=== PATIENT | male | born 1970 | race Caucasian/White ===

== ENCOUNTER → 2022-05-15 | Outpatient (CLI) | payer BC ==
--- NOTE | 2022-05-16 07:19 | US ---
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 Patient has had lump on his neck for as long as he can remember 15+years. At patients large palpable neck mass is a solid area with cystic areas on each side. Solid area measu res 2.7 x 1.8 x 1.8cm, cystic area to the right measures 1.7 x 2.1 x 3.2cm, cystic area to the left m easures 3.3 x 1.5 x 2.3cm IMPRESSION: Complex mass for which further evaluation with contrast-enhanced CT is advised.
== END | disposition home or self-care (01) ==
LOC: RADUSWWP 16:27
PROVIDERS: ATTEND Family Medicine
DX: Q89.2 Congenital malformations of other endocrine glands (principal)
CPT/HCPCS: 76536

== ENCOUNTER → 2022-05-21 | Outpatient (CLI) | payer BC ==
[2022-05-21 13:16] LABS: African American GFR (CKD) >90 (>60 ml/min/1.73 sqM); Blood Urea Nitrogen 17 mg/dL (9-20); Non-African American GFR(CKD) >90 (>60 ml/min/1.73 sqM)
--- NOTE | 2022-05-21 21:53 | CT ---
EXAMINATION TYPE: CT soft tissue neck w con DATE OF EXAM: 05/21/2022 HISTORY: Abnormal ultrasound. Chronic lump in neck for over 15 years per patient. COMPARISON: Neck ultrasound [address] DLP: 780.3 mGycm. Automated Exposure Control for Dose Reduction was Utilized. TECHNIQUE: CT scan of the neck is performed with IV Contrast, patient injected with 70 mL of Isovue 300, axial images are obtained, coronal and sagittal reformatted images are reviewed. FINDINGS: Airway: Anterior to the airway and superior to the thyroid gland at level of the false focal cords or cricoid cartilage there is thin walled fluid collection or cystic lesion measuring 3.6 x 1.6 cm-imag e 62 measuring approximately 4.1 cm craniocaudal dimension coronal image 25 extending inferiorly to t he left of midline and superiorly from the inferior posterior margin of the hyoid bone. It is well-de fined with curvilinear shape noted on sagittal images. Parotid/submandibular glands: No gross abnormality seen. Carotid/Vascular Structures: Coronary artery calcifications somewhat prominent and visualized portion of the LAD. Correlate for additional cardiac risk factors advised. [id number] peripheral plaque left greater than right carotid bulb extends into proximal interna l carotid artery without significant stenosis. Vertebral arteries are patent to basilar junction. Lef t vertebral artery is dominant. Osseous Structures: No significant abnormality. Other: No suspicious adenopathy. IMPRESSION: There is 4.1 cm thin-walled cyst or cystic lesion anterior supraglottic level from the hy oid bone to the level of the vocal cords having left inferior extension. Finding consistent with thyr oglossal duct cyst based on appearance and patient history.
== END | disposition home or self-care (01) ==
LOC: RADCTMAIN 12:30
PROVIDERS: ATTEND Family Medicine
DX: Q89.2 Congenital malformations of other endocrine glands (principal)
CPT/HCPCS: 82565; 84520; 70491; 36415; Q9967

== ENCOUNTER 2023-07-01 07:19 | Day surgery (SDC) | payer BC ==
[2023-06-26 15:52] VITALS: BMI 25.7
[~2023-07-01 07:19] MED LIST: LACTATED RINGERS 1,000 ML IV SCH; LIDOCAINE 1% (10MG/ML) FOR IV START INTRADERMA PRN
[2023-07-01 07:57] VITALS: TEMP 96.9
[2023-07-01 08:06] LABS: Glucose,Whole Blood 157 mg/dL (70-110)
[2023-07-01] MEDS ORDERED: PROPOFOL 10 MG/ML 20 ML VIAL IV ONE (08:16)
[2023-07-01] MEDS ORDERED: LIDOCAINE 1% INJ 10MG/ML (20 ML MDV) ONE (08:16)
--- NOTE | 2023-07-01 08:44 | P.PCN ---
Date of Procedure: 07/01/23 Procedure(s) Performed: Brief history: Patient is a pleasant 52-year-old white male scheduled for an elective upper endoscopy as well as colonoscopy as a part of evaluation of long-standing history of GERD GERD and screening for colon cancer Procedure performed: Esophagogastroduodenoscopy with biopsy Colonoscopy snare polypectomy Preoperative diagnosis: GERD Screening for colon cancer Anesthesia: MAC Procedure: After informed consent was obtained from the patient was brought into the endoscopy unit and IV sedation was administered by anesthesia under continuous monitoring. Initially upper endoscopy was done. The Olympus GF 160 video endoscope was inserted inserted into the mouth and esophagus intubated without any difficulty and was gradually advanced into the stomach and duodenum and carefully examined. The bulb and second part of the duodenum appeared normal. The scope was then withdrawn into the stomach adequately insufflated with air and upon careful examination the antrum and linear areas of erythema consistent with gastritis and biopsies were done from this area. Mucosa of the body, cardia and fundus appeared normal. The scope was then withdrawn into the esophagus. The GE junction was located at 40 cm to the incisors. It appeared regular with no erythema erosions or ulcerations. Rest of the esophagus appeared normal. Patient tolerated the procedure well. At this time the patient continued to remain sedation. Initial digital rectal examination was normal. Olympus CF 160 video colonoscope was then inserted into the rectum and gradually advanced to the cecum without any difficulty. Careful examination was performed as the scope was gradually being withdrawn. The prep was excellent. The cecum, ascending colon, transverse colon, normal. In the descending colon there was a 7 mm polyp removed by cold snare polypectomy. In the distal sigmoid colon there was a 5 mm and 1 cm polyp removed by snare polypectomy. The rectum appeared normal. Retroflexion was performed in the rectum and no lesions were noted. Patient tolerated the procedure well. Impression: 1. Upper endoscopy revealed mild diffuse antral gastritis but no evidence of esophagitis or Coffman's esophagus 2. Colonoscopy revealed: a) 7 mm descending colon polyp status post snare polypectomy b) 5 mm and 1 cm distal sigmoid: Polyp status post polypectomy Recommendations: Findings of this examination were discussed with the patient as well as his family. He was advised to follow with the biopsy results. Continue with lansoprazole 30 mg daily half hour before dinnertime and follow antireflux measures. If the biopsy the colon polyps revealed adenoma he can have a repeat colonoscopy in 3 years
[2023-07-01 09:16] VITALS: BP 143/89; PULSE 74; RESP 20
== END 2023-07-01 09:21 | disposition home or self-care (01) ==
LOC: ORWHC2ENDO 07:19
PROVIDERS: ATTEND Internal Medicine Gastroenterology
DX: Z12.11 Encounter for screening for malignant neoplasm of colon (principal); D12.5 Benign neoplasm of sigmoid colon; D12.4 Benign neoplasm of descending colon; K21.9 Gastro-esophageal reflux disease without esophagitis; K29.50 Unspecified chronic gastritis without bleeding; I10 Essential (primary) hypertension; E78.5 Hyperlipidemia, unspecified; J45.909 Unspecified asthma, uncomplicated; F12.90 Cannabis use, unspecified, uncomplicated; Z79.899 Other long term (current) drug therapy
CPT/HCPCS: 88305; 45385; 43239; J2001; J2704